=== PATIENT | female | born 1960 | race Caucasian/White ===

== ENCOUNTER 2025-08-05 15:11 | Outpatient (AMB) | payer MEDICARE, MEDICAID, SELFPAY ==
--- NOTE | 2025-08-05 15:17 | A.OFFVIS_ITS ---
Vital Signs 08/05/25 15:18 Height 5 ft 4 in Weight 183 lb BMI 31.4 BP 106/62 Blood Pressure Location Rt brachial Position Sitting Pulse 71 Pulse Source Pulse Oximeter Pulse Oximetry (%) 95 Oxygen Delivery Method Room Air Intake Visit Reasons: COPD Allergies aspirin Allergy (Severe, Verified 08/05/25 15:22) Anaphylaxis egg (eggs) Allergy (Severe, Verified 08/05/25 15:22) Anaphylaxis morphine Allergy (Intermediate, Verified 08/05/25 15:22) Hallucinations Penicillins Allergy (Intermediate, Verified 08/05/25 15:22) Hives Sulfa (Sulfonamide Antibiotics) Allergy (Intermediate, Verified 08/05/25 15:22) Hives HPI Comments Details: Sangeeta is a 65-year-old female, current 50 pack year smoker, with underlying childhood asthma, COPD, GERD, chronic pain syndrome, and HTN. She was referred by PCP for pulmonary evaluation. She was previously under the care of [facility] and is requesting to switch to this office. Her respiratory status began to decline around January, with increasingly frequent exacerbations treated with prednisone. She subsequently developed pneumonia. During this recent illness, she experienced severe dyspnea, making it difficult to walk even from the door to the car. She was seen at an urgent care center where she was advised to go to the hospital but refused admission. She was treated with prednisone and DuoNeb. She was eventually hospitalized and diagnosed with bilateral pneumonia, receiving prednisone, but returned to the hospital hours after discharge with worsening symptoms. A subsequent urgent care visit about three weeks ago resulted in a 7-day course of Levaquin 750 mg, which provided significant relief. An x-ray at an urgent care on July 29 reportedly showed some c learing, though she was still wheezing. The patient has a lifelong history of a chronic, harsh, wet-sounding cough, though she has difficulty expectorating sputum, which is typically clear or foamy. She carries a diagnosis of asthma from childhood and has a family history of COPD in her aunt. Prior to her recent illness, she required albuterol nebulizer treatments every six hours due to exertional dyspnea but had a period of one year where her symptoms were well-controlled on Breztri alone without needing a nebulizer. She has also tried Trelegy and Daliresp in the past, and recently restarted Daliresp. Past medical history is significant for a partially blocked coronary artery and an unspecified heart issue, for which her cardiology care was interrupted due to a practice closure. She also developed significant pedal edema recently, which resolved with restarting Lasix. She also has a history of anxiety attacks and a severe needle phobia. Her social history is notable for smoking since a young age, currently down to three cigarettes per day from a previous half to full pack per day. She has significant secondhand smoke exposure from her partner, who smokes up to two packs daily inside their home. 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 Her most recent chest CT from 05/20/2025 demonstrated atelectasis, air bronchograms and volume loss in the right middle lobe. No endobronchial tumors were seen. Previously bronchoscopy was recommended by prior evaporator operator however she declined. Pulmonology History - History of asthma since childhood. - Chronic Obstructive Pulmonary Disease with a lifelong chronic, productive cough. - Recent bilateral pneumonia (starting ) requiring hospitalization and treatment with multiple courses of prednisone and Levaquin. - Prior medication trials include Trelegy and Daliresp (roflumilast). - History of participation in a remote pulmonary rehabilitation program. - Pulmonary function test in 2021 showed moderate COPD, diffusion capacity of 76%. - Chest CT scan in April 2025 showed right middle lobe atelectasis/infiltrate and small bilateral pulmonary nodules. - Has experienced episodes of cyanosis and has had oxygen saturation drop to 88% but has never required home oxygen. FOR[facility]LY [facility], [facility] Social History (Updated 08/05/25 @ 15:23 by Hannah Du [facility]) Patient Tobacco Use Status: Current everyday Tobacco user Cigarette Packs Per Day: 0.25 Cigarettes Per Day: 3 Review of Systems Narrative Const Denies chills, Denies excessive sweating, Denies fever(s), Denies headache(s) and Denies night sweats Eyes Denies dry eyes, Denies irritation and Denies itchy eyes ENT Reports Normal hearing present and Denies headache(s) Card Denies chest pain, Denies chest pain at rest, Denies chest pain with activity, Denies claudication, Denies leg edema, Denies orthopnea and Denies paroxysmal nocturnal dyspnea Resp Denies chest congestion, Denies excessive phlegm production, Denies pain on inspiration, Denies pain with cough and Denies stridor Musc Denies myalgias Neuro Reports Normal hearing present and Denies headache(s) Endo Denies excessive sweating Tod/Lymph Denies lymphadenopathy Aller/Immun Denies itchy eyes and Denies seasonal rhinorrhea Physical Exam Exam Exam: Vital Signs: Last Vital Signs Pulse 71 08/05/25 15:18 BP 106/62 08/05/25 15:18 Pulse Ox 95 08/05/25 15:18 Oxygen Delivery Method Room Air 08/05/25 15:18 BMI result Body Mass Index 31.4 Const General: cooperative, healthy appearing, comfortable, no acute distress, well developed and alert Nutritional Appearance: obese Orientation/consciousness: patient oriented x3 Limitations: no limitations HEENT Head: Yes normal to inspection, Yes normocephalic and Yes atraumatic Ears: hearing grossly normal bilaterally and external ears normal Eyes General: appearance normal, both eyes and all related structures Eyelids: Yes eyelids normal Sclerae: sclerae normal EOM: EOMs intact bilaterally Neck Neck: Yes normal visual inspection and Yes no lymphadenopathy Lymphatic: no lymphadenopathy noted Chest Chest palpation & inspection: normal inspection of the chest Resp Effort & Inspection: normal respiratory effort, able to speak in complete sentences, no audible wheezes, Actively coughing Quality: wet, no stridor, not tachypneic, no tripod positioning and no use of accessory muscles Auscultation: diminished lung sounds Cardio Jugular venous distension: no JVD Rate: regular rate Rhythm: regular rhythm Skin Other: warm, dry General skin exam: no rashes or lesions noted Neuro General: patient oriented x3 Cranial nerves: Yes Normal hearing present Cognition (Neuro): normal cognition Gait exam (Neuro): Normal gait present Extrem General: Yes normal to inspection, Yes capillary refill normal, Yes no clubbing, cyanosis or edema and Yes no pedal edema Psych Appearance: grossly normal and well kempt Speech and movement: Normal speech and movement present and Clear speech present Affect: normal affect Attitude: cooperative Thought process: Normal thought process present Thought content: Normal thought content present Insight: Good insight present (Psych) Judgement: Good judgement present (Psych) Assessment & Plan Assessment & Plan (1) COPD (chronic obstructive pulmonary disease): Code(s): J44.9 - Chronic obstructive pulmonary disease, unspecified Category: Medical (2) Asthma: Code(s): J45.909 - Unspecified asthma, uncomplicated Category: Medical (3) Nicotine dependence, cigarettes, uncomplicated: Code(s): F17.210 - Nicotine dependence, cigarettes, uncomplicated Category: Medical (4) Environmental allergies: Code(s): Z91.09 - Other allergy status, other than to drugs and biological substances Category: Medical Plan Had a detailed discussion with the patient about her complex and multifactorial respiratory history.The patient's COPD appears to be suboptimally controlled, compounded by her recent pneumonia, ongoing exposures, and medication access issues. The plan is to continue Breztri, with patient education provided on proper use and how to address a malfunctioning device. A prescription for ipratropium-albuterol nebulizer solution will be sent for as-needed use, as she finds this more effective than albuterol alone. She will continue Daliresp at the lower dose with the plan to increase as tolerated. Given her harsh cough and history of good response, a course of azithromycin will be prescribed for its antibiotic and anti-inflammatory properties. To aid in airway clearance, a flutter valve will be ordered for use after nebulizer treatments. Diagnostic workup will include repeating PFTs and obtaining a non-contrast chest CT to re- evaluate chronic changes. Records from recent urgent care visits will be requested. The patient was counseled on smoking cessation and engaging in light activity while monitoring her oxygen saturation. The patient has a history of childhood asthma, known allergic triggers including a pet and sawdust, and symptoms of sinus congestion, suggesting an allergic component to her respiratory symptoms. The plan is to initiate a trial of an ddel-mji-qkecmac allergy pill, such as Zyrtec or Xyzal. The potential for future allergy testing via bloodwork and consideration for biologic therapy if symptoms persist was discussed as a fvti-cjk-olaw option, although she would like to avoid any lab draws at this time. Prior imaging showed persistent right middle lobe atelectasis of unclear etiology, possibly related to infection or mucus plugging. The plan is to order a repeat non-contrast chest CT to assess for resolution or persistence of this finding now that the acute infection has been treated. Her continued use of the incentive spirometer and the addition of a flutter valve are encouraged to promote lung expansion and airway clearance. We discussed return precautions, advising her to go to an urgent care or call us for worsening symptoms, and to go to the hospital if her oxygen saturation drops below 90%. A follow-up appointment was scheduled for approximately 8 weeks to review the results of her tests and assess her response to the new therapies. All questions were answered and patient is in agreement of plan. Patient was informed and verbally consented to the use of an ambient scribe for clinic note documentation during this visit. Orders: Orders CT chest wo IV con Today R93.89 - Abnormal findings on diagnostic imaging of other specified body structures PFT pulmonary function test Today J44.9 - Chronic obstructive pulmonary disease, unspecified Medications: New azithromycin For 250 mg dose pack: take 500 mg today (day 1), then 250 mg for 4 days (days 2-5) PO 6 tabs 0RF cetirizine (Zyrtec) 10 mg PO DAILY PRN 30 tabs 3RF allergy symptoms ipratropium-albuterol 0.5 mg-3 mg(2.5 mg base)/3 mL 3 mL inhalation Q6H PRN 180 mL 0RF wheezing J44.9 - Chronic obstructive pulmonary disease, unspecified Coding Level of Care Code New Pt Level 4 (81405) Diagnoses COPD (chronic obstructive pulmonary disease) J44.9 Asthma J45.909 Nicotine dependence, cigarettes, uncomplicated F17.210 Environmental allergies Z91.09
[2025-08-05 15:18] VITALS: BP 106/62; PULSE 71; O2SAT 95; BMI 31.4
--- OUTSIDE RECORDS SUMMARY | 2025-08-05 20:11 | XMS_ITS | Data Portability ---
Author Organization [facility] [address] Address [address] [place] [address] Care Team Providers Care Commodities Trader Name Role Phone KENDRICK SPAULDING Primary Care Provider [phone] Assessment No assessment recorded. Plan of Treatment Reminders Order Date Submit Date Provider Last Modified By Organization Details Last Modified Time Details Appointments None recorded. Lab None recorded. Referral None recorded. Procedures None recorded. Surgeries None recorded. Imaging None recorded. Medication Orders Zithromax Z-Marcos 250 mg tablet [address] [facility] [place], [place], [address] [place], [address], 13:11:49 prednisone 10 mg tablet [address] [facility] [place], [address] [place], [address], 13:11:49 Patient TargetsNo targets recorded. Patient Instructions Encounter Date Encounter Id Patient Instructions Last Modified By Organization Details Last Modified Time 09/03/2024 [id number] COPD exacerbatio n plan: care instructions [email or web address] Not available 09/03/2024 13:10:11 Reason for Referral None Reported. 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 Procedures Surgical History Date Name Laterality Status Provider Name and Address Organization Details Recorded Time 08/25/18 92 procedure on ovary completed Winston Curto PA - [facility] 09/03/2024 12:24:13 08/25/18 89 orthognathic operation of mandible completed Winston Curto PA - [facility] 09/03/2024 12:24:48 Imaging Results None recorded. Procedure Notes None recorded. Medical Equipment None Reported. Allergies Allergen ID Allergen Name Allergen Category Reaction Reaction Severity Criticality Documentation Date Start Date Code Code System Note Provider Name and Address Organization Details Recorded Time 2828804 aspirin medicatio n anaphylax is Not available Not available 09/03/2024 1191 RxNorm Winston Curto null, PA - [facility] 12:17:49 9358216 egg extract food,medi cation anaphylax is hives Not available Not available Not available 09/03/2024 27539 15 RxNorm Winston Curto null, PA - [facility] 12:18:06 0432612 Product containin g penicilli n (product) medicatio n hives Not available Not available 09/03/2024 73635 8001 SNOMED Winston Curto null, PA - [facility] 12:18:15 6050780 Substance with sulfonami de structure and antibacte rial mechanism of action (substanc e) medicatio n Not available Not available Not available 09/03/2024 93719 8003 SNOMED Pt does not remem vickie react ion Winston Curto null, PA - [facility] 12:18:33 Medications Name Sig Start Date Stop Date Status Note LastModified by Organization Details LastModified Time nystatin 100,000 unit/mL oral suspension TAKE 1 TEASPOONF UL -5nl- BY MOUTH 4 TIMES DAILY 09/03 completed Not Available Not Available Not Available prednisone 10 mg tablet take 60 mg po x 2 d then 50 mg po x 2 d then 40 mg po x 2 d then 30 mg po x 2 d then 20 mg po x 2 d then 10 mg until complete active Not Available Not Available No t Available ipratropium 0.5 mg-albutero l 3 mg (2.5 mg base)/3 mL nebulizatio n soln USE 1 vial via nebulizer 4 TIMES DAILY NEEDED FOR WHEEZING / SHORTNESS OF BREATH 2024 active Not Available Not Available Not Avai lable azithromyci n 250 mg tablet TAKE 2 TABLETS (500 MG) BY ORAL ROUTE ONCE DAILY FOR 1 DAY THEN 1 TABLET (250 MG) BY ORAL ROUTE ONCE DAILY FOR 4 DAYS active Not Available Not Available No t Available pravastatin 40 mg tablet TAKE 1 TABLET BY MOUTH AT BEDTIME active Not Available Not Available No t Available prednisone 20 mg tablet TAKE 2 TABS BY MOUTH DAILY FOR 3 DAYS THEN TAKE 1 1/2 TABS DAILY FOR 3 DAYS THEN TAKE 1 TABS DAILY FOR 3 DAYS THEN 1/2 TAB DAILY FOR 3 DAYS 09/03 completed Not Available Not Available Not Available clopidogrel 75 mg tablet TAKE 1 TABLET BY MOUTH DAILY active Not Available Not Available No t Available benzonatate 100 mg capsule TAKE 1 CAPSULE BY MOUTH THREE TIMES DAILY. swallow whole 09/03 completed Not Available Not Available Not Available oseltamivir 75 mg capsule TAKE 1 CAPSULE BY MOUTH TWICE DAILY FOR 5 DAYS 09/03 completed Not Available Not Available Not Available furosemide 20 mg tablet TAKE 1 TABLET BY MOUTH DAILY active Not Available Not Available No t Available metoprolol succinate ER 25 mg tablet,exte nded release 24 hr TAKE 1 TABLET BY MOUTH DAILY active Not Available Not Available No t Available azelastine 137 mcg (0.1 %) nasal spray [place]ora 1 spray twice a day by intranasa l route. active Not Available Not Available No t Available Ventolin HFA 90 mcg/actuati on aerosol inhaler inhale 2 PUFFS BY MOUTH every 6 hours NEEDED FOR WHEEZING active Not Available Not Available No t Available nicotine (polacrilex ) 2 mg buccal mini lozenge DISSOLVE 1 lozenge BY MOUTH UNDER THE LIP every 3 hours NEEDED 09/03 completed Not Available Not Available Not Available Breztri Aerosphere 160 mcg-9mcg-4. 8mcg/actuat ion HFA aerosol inhaler inhale 2 PUFFS by MOUTH 2 TIMES A DAY. RINSE MOUTH AND throat AFTER USE] active Not Available Not Available No t Available Vitals Date Recorded Body height Body mass index (BMI) Body weight Body temperature Respiratory rate Oxygen saturation Pain severity - 0-10 verbal numeric rating [Score] - Reported Heart rate Systolic And Diastolic Provider Name and Address Organization Details Last Updated DateTime 154.94 cm 25.7 kg/m2 88878.5 6 g 98 [degF] 16 /min 97 % 7 74 /min 131/73 mm[Hg] Winston Frey PA [facility] 12:30:01 Social History Question Answer Notes LastModified by [employer] Details LastModified Time Tobacco Smoking Status Current Every Day Smoker Winston godinez PA [facility] 09/03/2024 12:23:22 Have You Had A Flu Shot This Season? No Information not available 09/03/2024 If No, Would You Like A Flu Shot Today? No Information not available 09/03/2024 What Was The Date Of Your Most Recent Tobacco Screening? 09/03/2024 Information not available 09/03/2024 Have You Recently Traveled Abroad? No Information not available 09/03/2024 Sex: Unknown Functional Status Question Answer Note LastModified by [employer] Details LastModified Time Do you use any illicit or recreational drugs? No Information not available 09/03/2024 Do you or have you ever used any other forms of tobacco or nicotine? No Information not available 09/03/2024 What is your level of alcohol consumption? None Information not available 09/03/2024 Are you currently employed? No Information not available 09/03/2024 Mental Status None recorded. Family History Relationship Description Onset Age of this Age Resolved Age Notes LastModified by Organization Details LastModified Time Father Angina pectoris Not available 2024 12:21:40 Father Diabetes mellitus Not available 2024 12:21:51 Mother Malignant neoplasm of breast Not available 2024 12:21:58 Mother Dementia Not available 09/03/2024 12:22:09 Mother Rheumatoid arthritis Not available 2024 12:22:22 Brother Rheumatoid arthritis Not available 2024 12:22:37 Brother Hypertensive disorder Not available 2024 12:22:46 Medical History No medical history recorded. Gynecological HistoryNo gynecological history recorded. Obstetrics History GPAL:G 0 P 0 0 0 0 Past Encounters Encounter ID Performer Location Encounter Start Date Encounter Closed Date Diagnosis/Indication Diagnosis SNOMED-CT Code Diagnosis ICD10 Code Diagnosis IMO Codes Diagnosis [place] [id number] [place] [address] [address] 09/03/2024 11:59:59 09/03/2024 13:28:16 Acute exacerbation of chronic obstructive pulmonary disease 224326830 J44.1 Given Hx and Sx will Rx Abx and prednisone typically responds well to azithromyc in She DECLINED CXRAlso declined neb treatment Take your antibiotic with food. Eat a yogurt daily or take a probiotic while you are taking the antibiotic . Reviewed with patient potential adverse side effects of the medication . Trial of mucinex prn congestion Humidified airrest, fluidstyle nol recommend smoking cessation Patient advised to follow up as needed for worsening symptoms or no improvemen t. Discussed concerning red flags with patient and reasons to follow up in the Emergency Department urgently. Patient expressed understand ing of and agreement with the plan as outlined above. Health Concerns Section Related Observation LastModified by Organization Detai ls LastModified Time None Recorded Concern Status LastModified by Organization Details LastModified Time None Recorded Advance Directives Directive None Recorded Payers Insurance Date Sequence Insurance Name Policy Number Policy Dailey Covered Member ID Dailey Member ID Guarantor Name 09/03/2024 2 [place] Sangeeta Kenney [id number] Sangeeta Kenney 09/03/2024 1 [place] [employer] Sangeeta Kenney [id number] Sangeeta Kenney Notes Date Note Type Note Provider Name and Address Organization Details Recorded Time 09/03/2024 text/html CoughReported by [id number] yo female c/o cough x 1 d+ productive + nasal congestion+ h/o COPD - on breztri and albuterol+ smoker Home covid test done today was negative. No feverNo chillsNo nauseaNo vomitingNo difficulty breathing or respiratory distressNo CPNo sinus painNo ear painNo sore throatNo Abdominal painNo diarrheaNo myalgiaNo fatigueNo rashNo HANo dizzinessNo recent travelNo known sick contacts ROS as noted in the HPI Ric Helms, DO [address] [place], [address], PA - [facility] 09/03/2024 13:10:49 OBGyn Episode No OBEpisode recorded.
--- OUTSIDE RECORDS SUMMARY | 2025-08-05 20:12 | XMS_ITS | Clinical Summary ---
Author Organization [facility] Address [address] [place] [phone] Phone Care Team Providers Care Personal Vehicle Advisor Name Role Phone Brynn Gan Primary Care Provider Social History Tobacco Use Types Packs/Day Years Used Date Smoking Tobacco: Never Assessed Comments Unknown Sex and Gender Information Value Date Recorded Sex Assigned at Not on file Legal Sex Female 11:08 AM EST Gender Identity Not on file Sexual Orientation Not on file Plan of Treatment Upcoming Encounters Date Type Department Care Team (Late st Contact Info) Description 11/01/2025 9:15 AM EDT Office Visit Orthopedic Surgery [place] [id number] [id number] Aron Burroughs, DPM [address] [id number] Health Maintenance Due Date Last Done Comments Breast Cancer Screening 1961 Colorectal Cancer Screening: Colonoscopy 1961 DTaP,Tdap,and Td Vaccines (1 - Tdap) 1980 Cervical Cancer Screening: P ap Smear 1982 Pneumococcal Vaccine: 50+ Ye ars (1 of 1 - PCV) 2011 Zoster Vaccines (1 of 2) 2011 Depression Screening 08/25/2024 COVID-19 Vaccine ( - 2024-2 6 season) 2025 Influenza Vaccine (#1) 2025 HIV Screening 05/19/2025 Hepatitis C Screening 05/19/2025 Medicare Annual Wellness Visit 05/19/2025 Social Influencers of Health Screening 05/19/2025 RSV Immunization Adult Patie nts (1 - 1-dose 75+ series) 2036 HIB Vaccines Aged Out No longer eligi ble based on patient's age to complete this topic HPV Vaccines Aged Out No longer eligi ble based on patient's age to complete this topic Hepatitis A Vaccines Aged Out No long er eligible based on patient's age to complete this topic Hepatitis B Vaccines Aged Out No long er eligible based on patient's age to complete this topic IPV Vaccines Aged Out No longer eligi ble based on patient's age to complete this topic MMR Vaccines Aged Out No longer eligi ble based on patient's age to complete this topic Meningococcal ACWY Vaccine Aged Out N o longer eligible based on patient's age to complete this topic Meningococcal B Vaccine Aged Out No l onger eligible based on patient's age to complete this topic RSV Immunization Patients Un renata 20 months Aged Out No longer eligible b ased on patient's age to complete this topic Varicella Vaccines Aged Out No longer eligible based on patient's age to complete this topic Insurance MEDICARE MEDICAID - [place] Care Teams Personal Vehicle Advisor Relationship Specialty Start Date End Date Brynn Gan PA [address] [place] [phone] PCP - General Internal Medicine 09/20/21
--- OUTSIDE RECORDS SUMMARY | 2025-08-05 20:12 | XMS_ITS ---
Author Name [facility] Organization Unknown Encounters Encounter Type Encounter Reason Primary Diagnosis Location Date Ambulatory [facility] ([facility] 09/03/2024
== END 2025-08-05 16:26 | disposition home or self-care (01) ==
LOC: HO.HPSW 15:11
PROVIDERS: PCP Nurse Practitioner Family; Referring Provider Nurse Practitioner Family; Visit Provider Nurse Practitioner Family
DX: J44.9 Chronic obstructive pulmonary disease, unspecified (principal); J45.909 Unspecified asthma, uncomplicated; F17.210 Nicotine dependence, cigarettes, uncomplicated; Z91.09 Other allergy status, other than to drugs and biological substances
CPT/HCPCS: 99204

== ENCOUNTER → 2025-08-05 15:11 | Outpatient (BNVA) | payer MEDICARE, MEDICAID, SELFPAY | PROVIDERS: PCP Nurse Practitioner Family; Referring Provider Nurse Practitioner Family; Visit Provider Nurse Practitioner Family | DX: J44.9 Chronic obstructive pulmonary disease, unspecified (principal); J45.909 Unspecified asthma, uncomplicated; F17.210 Nicotine dependence, cigarettes, uncomplicated; Z91.09 Other allergy status, other than to drugs and biological substances | CPT/HCPCS: 99202 ==